=== PATIENT | male | born 1950 | race Two or more races ===

== ENCOUNTER 2020-05-20 22:19 | Emergency (ER) | payer MEDICARE ==
[2020-05-20 22:40] VITALS: BP 136/45; PULSE 94; TEMP 97.8; BMI 24.1
--- NOTE | 2020-05-20 22:51 | PDOC ---
History of Present Illness - General Chief Complaint: Urinary Problem Stated Complaint: INABILILITY TO URINATE,DRIBBLING URINE Time Seen by Provider: 05/20/20 22:23 History Source: Patient Exam Limitations: No Limitations - History of Present Illness Initial Comments: 05/20/20 23:11 This is a 69-year-old speaking male who comes in with his son who speaks Mohawk. Son was drop forger. Patient is complaining of burning on urination with frequency. Patient was at the urgent care center earlier today and diagnosed with a urinary tract infection started on Cipro and Flomax however was not given any Pyridium. Denies any fever, chills, nausea vomiting or diarrhea. Allergies: as per nursing notes Past Medical History: none Social history: Lives with family. No smoking. No alcohol. No illicit drugs. Surgical history: None General: No fevers or chills, no weakness, no weight loss HEENT: No change in vision. No sore throat,. No ear pain CardioVascular: no chest discomfort. No shortness of breath Respiratory:No cough, or wheezing. Gastrointestinal: no nausea, vomiting, diarrhea or constipation, No rectal bleeding Genitourinary: No dysuria, hematuria, or frequency Musculoskeletal: No joint or muscle pain or swelling Neurologic: No headache, vertigo, dizziness or loss of consciousness Psychiatric: nor depression Skin: No rashes or easy bruising Endocrine: no increased thirst or abnormal weight change Allergic: no skin or latex allergy All other systems reviewed and normal GENERAL: The patient is awake, alert, and fully oriented, in no acute distress. HEENT:Head is normal with no signs of trauma. Eyes: Pupils equal, round and reactive to light, Ears, and Throat are normal. Neck is supple. No Lymphadenopathy. EXTREMITIES:atraumatic, Normal range of motion, no edema. NEUROLOGICAL: Normal speech, normal gait. PSYCH: Normal mood, normal affect. SKIN: Warm, Dry, normal turgor, no rashes or lesions noted. Assessment and plan: This is a 69-year-old male with a urinary tract infection burning and dysuria. Patient was also complaining of dribbling with his urine nation so a Hidalgo was placed with very little return to urine. Patient was given Pyridium and a told to continue the rest of his medications Past History - Medical History Allergies/Adverse Reactions: Allergies Allergy/AdvReac Type Severity Reaction Status Date / Time No Known Allergies Allergy Verified 05/20/20 22:21 Home Medications: Ambulatory Orders Ciprofloxacin [Cipro (Restricted To Id)] 500 mg PO BID 05/20/20 Phenazopyridine HCl [Pyridium] 200 mg PO BID #6 tablet 05/20/20 Tamsulosin HCl [Flomax] 0.4 mg PO DAILY 05/20/20 Discharge - Discharge Information Problems reviewed: Yes Clinical Impression/Diagnosis: Hemorrhagic cystitis Condition: Stable Disposition: HOME - Admission No - Additional Discharge Information Prescriptions: Phenazopyridine HCl [Pyridium] 200 mg PO BID #6 tablet - Follow up/Referral - Patient Discharge Instructions Additional Instructions: Take all your medications as prescribed. Including the new medication I am giving you called Pyridium you will take it twice a day for 2 days. The Pyridium is a bladder anesthetic that will take away the burning sensation. Please note that the Pyridium will turn the urine a fluorescent orange color so do not be alarmed when this happens. Return to the emergency department immediately with ANY new, persistent or worsening symptoms. Continue any medications as previously prescribed by your physician. You should follow up with your primary doctor as soon as possible regarding today's emergency department visit. . Please make sure your doctor reviews the results of your emergency evaluation. Thank you for coming to the Emergency Department today for your care. It was a pleasure to see you today. Please note that your evaluation is INCOMPLETE until you follow-up with your doctor. - Post Discharge Activity
[2020-05-20] MEDS ORDERED: PHENAZOPYRIDINE HCL 100 MG TABLET (FP) PO ONE (22:52)
[2020-05-20] MEDS ORDERED: PHENAZOPYRIDINE HCL 100 MG TABLET (FP) ONE (23:00)
[2020-05-20 23:14] LABS: EPITHELIAL CELLS FEW /hpf
== END 2020-05-20 23:19 | disposition home or self-care (01) ==
LOC: FER 22:19
DX: N30.91 Cystitis, unspecified with hematuria (principal)
CPT/HCPCS: 81003; 81015; 87086; 99283-25

== ENCOUNTER 2020-05-22 12:05 | Emergency (ER) | payer MEDICARE ==
--- NOTE | 2020-05-22 12:18 | PDOC ---
History of Present Illness - General Chief Complaint: Urinary Problem Stated Complaint: PAIN ON URINATION Time Seen by Provider: 05/22/20 12:17 History Source: Patient Exam Limitations: No Limitations - History of Present Illness Initial Comments: 69 yo M presents with urinary urgency and frequency for the past 5 days. He was seen in an urgent care, given flomax and cipro. He was instructed to go to the ED if he continued to have symptoms of retention, as he might need a elizondo catheter. He presented to the ED with continued symptoms. UA was positive. He was instructed to continue the cipro and pyridium was added. He states that he continues to have burning with urination, sensation of incomplete void, and frequency. Denies fever, back pain, N/V. Past History - Medical History Allergies/Adverse Reactions: Allergies Allergy/AdvReac Type Severity Reaction Status Date / Time No Known Allergies Allergy Verified 05/22/20 12:07 Home Medications: Ambulatory Orders Ciprofloxacin [Cipro (Restricted To Id)] 500 mg PO BID 05/20/20 Phenazopyridine HCl [Pyridium] 200 mg PO BID #6 tablet 05/20/20 Tamsulosin HCl [Flomax] 0.4 mg PO DAILY 05/20/20 Sulfamethoxazole/Trimethoprim [Bactrim Ds -] 1 tab PO BID #6 tablet 05/22/20 COPD: No - Psycho-Social/Smoking History Smoking History: Former smoker Have you smoked in the past 12 months: No If you are a former smoker, when did you quit?: 15 Review of Systems - Review of Systems Comments:: GENERAL/CONSTITUTIONAL: No fever or chills. No weakness. HEAD, EYES, EARS, NOSE AND THROAT: No change in vision. No ear pain or discharge. No sore throat. CARDIOVASCULAR: No chest pain or shortness of breath. RESPIRATORY: No cough, wheezing, or hemoptysis. GASTROINTESTINAL: No nausea, vomiting, diarrhea or constipation. GENITOURINARY: +Dysuria, +frequency. MUSCULOSKELETAL: No joint or muscle swelling or pain. No neck or back pain. SKIN: No rash. NEUROLOGIC: No headache, vertigo, loss of consciousness, or change in strength/sensation. ENDOCRINE: No increased thirst. No abnormal weight change. HEMATOLOGIC/LYMPHATIC: No anemia, easy bleeding, or history of blood clots. ALLERGIC/IMMUNOLOGIC: No hives or skin allergy *Physical Exam - Physical Exam GENERAL: Awake, alert, and fully oriented, in no acute distress HEAD: No signs of trauma EYES: PERRLA, EOMI, sclera anicteric, conjunctiva clear ENT: Auricles normal inspection, hearing grossly normal, nares patent, oropharynx clear without exudates. Moist mucosa NECK: Normal ROM, supple, no lymphadenopathy, JVD, or masses LUNGS: Breath sounds equal, clear to auscultation bilaterally. No wheezes, and no crackles HEART: Regular rate and rhythm, normal S1 and S2, no murmurs, rubs or gallops ABDOMEN: Soft, nontender, normoactive bowel sounds. No guarding, no rebound. No masses. No CVAT EXTREMITIES: Normal range of motion, no edema. No clubbing or cyanosis. No cords, erythema, or tenderness NEUROLOGICAL: Cranial nerves II through XII grossly intact. Normal speech, normal gait. Motor and sensation intact SKIN: Warm, dry, normal turgor, no rashes or lesions noted. : Circumcised. No external lesions. No testicular tenderness, induration, erythema. Normal testicular lie. No penile discharge. Medical Decision Making - Medical Decision Making 05/22/20 12:31 Pt was started on cipro by urgent care, which may be the reason for negative UCx in this ED. My suspicion is that he has a UTI but may have inducible resistance. Bladder scan was 43cc in ED, so retention is not an issue. No signs of epididymitis, as well. Will obtain UA, then change abx. Discharge - Discharge Information Problems reviewed: Yes Clinical Impression/Diagnosis: Cystitis Condition: Stable Disposition: HOME - Additional Discharge Information Prescriptions: Sulfamethoxazole/Trimethoprim [Bactrim Ds -] 1 tab PO BID #6 tablet - Follow up/Referral Referrals: Reid Jameson MD [Staff Physician] - - Patient Discharge Instructions Patient Printed Discharge Instructions: DI for Urinary Tract Infection (UTI) Additional Instructions: Please stop taking the ciprofloxacin. Start the bactrim DS instead. If you have fever, chills, vomiting, or back pain, return to the ER immediately. Follow up with urology if you continue to have symptoms. - Post Discharge Activity
[2020-05-22 12:24] VITALS: BP 159/86; PULSE 94; TEMP 98.4; BMI 23.3
[2020-05-22 12:57] LABS: EPITHELIAL CELLS FEW /hpf
--- OUTSIDE RECORDS SUMMARY | 2020-05-22 14:12 | XMS ---
:1950 Author Organization [facility] Support Name Relationship Address Phone RE Unavailable Unavailable Unavailable Re-disclosure Warning The records that you are about to access may contain information from federally- assisted alcohol or drug abuse programs. If such information is present, then the following federally mandated warning applies: This information has been disclosed to you from records protected by federal confidentiality rules (42 CFR part 2). The federal rules prohibit you from making any further disclosure of this information unless further disclosure is expressly permitted by the written consent of the person to whom it pertains or as otherwise permitted by 42 CFR part 2. A general authorization for the release of medical or other information is NOT sufficient for this purpose. The Federal rules restrict any use of the information to criminally investigate or prosecute any alcohol or drug abuse patient.The records that you are about to access may contain highly sensitive health information, the redisclosure of which is protected by Article 27-F of the [facility] Public Health law. If you continue you may haveaccess to information: Regarding HIV / AIDS; Provided by facilities licensed or operated by the [facility] Office of Mental Health; or Provided by the [facility] Office for People With Developmental Disabilities. If such information is present, then the following [facility] mandated warning applies: This information has been disclosed to you from confidential records which are protected by state law. State law prohibits you from making any further disclosure of this information without the specific written consent of the person to whom it pertains, or as otherwise permitted by law. Any unauthorized further disclosure in violation of state law may result in a fine or snf sentence or both. A general authorization for the release of medical or other information is NOT sufficient authorization for further disclosure. Insurance Providers Payer name Policy type Policy ID Covered Covered green party's Policy P ladi / Coverage green party ID relationship to [employer] ormation type torres [id number] SP [id number] 200 MEDICARE ADV PLAN [id number] [id number] MEDICARE ADV PLAN
== END 2020-05-22 12:50 | disposition home or self-care (01) ==
LOC: FER 12:05
DX: N30.90 Cystitis, unspecified without hematuria (principal)
CPT/HCPCS: 81003; 81015; 87086; 99283-25